=== PATIENT | female | born 1995 | race Caucasian/White ===

== ENCOUNTER 2023-07-29 15:20 | Emergency (ER) | payer OTHER ==
[2023-07-29 16:21] VITALS: RESP 16; TEMP 98.7
--- NOTE | 2023-07-29 16:27 | ED ---
Abdominal Pain HPI - General Source: patient, RN notes reviewed, old records reviewed Mode of arrival: ambulatory Limitations: no limitations <Lilly Kyle - Last Filed: 07/29/23 16:24> <Kurt Rose - Last Filed: 07/29/23 19:37> - General Chief Complaint: Abdominal Pain Stated Complaint: Abd Pain Time Seen by Provider: 07/29/23 16:24 - History of Present Illness Initial Comments: Patient is a 27-year-old female presented to the ER with chief complaint of right lower quadrant pain. 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 (Lilly Kyle) 27-year-old female presenting to the ED with a chief complaint of abdominal pain. Patient states 3 days ago started to feel pain in her right lower abdomen with some associated nausea and vomiting. Was seen at [facility] on 07/27/23 and was diagnosed with a urinary tract infection. Was given 1 g Rocephin at this time and discharged home with Keflex. Patient reports today, went back to [facility] continued symptoms. No worsening of this. Has been taking these antibiotics as prescribed. Stated that she would like to have another physician's opinion. Laboratory studies at this facility reviewed and labs including CBC and chemistry panel largely unremarkable. UA there did have 3+ blood, 10-20 red blood cells, 25-50 white blood cells, 3+ bacteria, and 3+ leukocyte Estrace. CT abdomen pelvis with contrast showed no acute process. Did show some mild splenomegaly at 13.9 cm. There were also some varices in the low pelvis which were also seen on transvaginal ultrasound as well. Patient was then transferred to this facility for surgical consultation. Patient reports that she has been taking her antibiotics as prescribed. (Kurt Rose) - Related Data Home Medications Medication Instructions Recorded Confirmed Omeprazole [PriLOSEC] 20 mg PO DAILY 12/03/15 12/03/15 Promethazine [Phenergan] 25 mg PO Q8HR PRN 12/03/15 12/03/15 Previous Rx's Medication Instructions Recorded Ciprofloxacin HCl [Cipro] 500 mg PO Q12HR #20 tablet 12/05/15 Allergies Allergy/AdvReac Type Severity Reaction Status Date / Time aripiprazole [From Abilify] AdvReac EYE ISSUES Verified 12/03/15 16:55 escitalopram oxalate AdvReac Nausea & Verified 12/03/15 16:55 [From Lexapro] Vomiting Review of Systems ROS Other: All systems not noted in ROS Statement are negative. <Lilly Kyle - Last Filed: 07/29/23 16:24> ROS Other: All systems not noted in ROS Statement are negative. <Kurt Rose - Last Filed: 07/29/23 19:37> ROS Statement: Those systems with pertinent positive or pertinent negative responses have been documented in the HPI. Past Medical History Past Medical History: No Reported History History of Any Multi-Drug Resistant Organisms: None Reported Past Surgical History: Orthopedic Surgery Additional Past Anesthesia/Blood Transfusion Reaction / Comment(s): no hx Past Psychological History: Anxiety, Bipolar, Depression Past Alcohol Use History: Rare Past Drug Use History: None Reported - Past Family History Mother Family Medical History: No Reported History Father Family Medical History: No Reported History <Lilly Kyle - Last Filed: 07/29/23 16:24> General Exam Limitations: no limitations <Lilly Kyle - Last Filed: 07/29/23 16:24> General appearance: alert, in no apparent distress Head exam: Present: atraumatic, normocephalic Neck exam: Present: normal inspection Respiratory exam: Present: normal lung sounds bilaterally Cardiovascular Exam: Present: regular rate, normal rhythm GI/Abdominal exam: Present: soft (Diffuse abdominal tenderness to palpation. No rebound guarding or rigidity. No significant CVA tenderness to percussion bilaterally.), normal bowel sounds Neurological exam: Present: alert, oriented X3 Skin exam: Present: warm, dry <Kurt Rose - Last Filed: 07/29/23 19:37> - General Exam Comments Initial Comments: Visual Physical Exam Vital signs reviewed General: Well-appearing, nontoxic, no acute distress. Head: Normocephalic, atraumatic Eyes: PERRLA, EOMI ENT: Airway patent Chest: Nonlabored breathing Skin: No visual rash, normal skin tone Neuro: Alert and oriented 3 Musculoskeletal: No gross abnormalities (Lilly Kyle) Course Vital Signs 07/29/23 15:46 Temperature 98.7 F Pulse Rate 79 Respiratory 16 Rate Blood Pressure 142/88 O2 Sat by Pulse 98 Oximetry Medical Decision Making <Lilly Kyle - Last Filed: 07/29/23 16:24> - Lab Data Result diagrams: 07/29/23 16:52 07/29/23 16:52 <Kurt Rose - Last Filed: 07/29/23 19:37> - Medical Decision Making I performed the quick note portion of this chart. Electronically signed by Lilly Kyle PA-C (Lilly Kyle) Was pt. sent in by a medical professional or institution ([facility], PIPE COVERER HELPER, urgent care, hospital, or [facility]...) When possible be specific @ -Patient transferred from [facility] Did you speak to anyone other than the patient for history (EMS, parent, family, police, friend...)? What history was obtained from this source @ -No Did you review nursing and triage notes (agree or disagree)? Why? @ -I reviewed and agree with nursing and triage notes Were old charts reviewed (outside hosp., previous admission, EMS record, old EKG, old radiological studies, urgent care reports/EKG's, [facility] records)? Report findings @ -Laboratory studies and imaging from [facility] reviewed. For further details please see HPI. Differential Diagnosis (chest pain, altered mental status, abdominal pain women, abdominal pain men, vaginal bleeding, weakness, fever, dyspnea, syncope, headache, dizziness, GI bleed, back pain, seizure, CVA, palpatations, mental health, musculoskeletal)? @ -Differential Abdominal Pain Women: Appendicitis, Cholecystitis, diverticulosis, ischemic bowel, pancreatitis, hepatitis, UTI, gastroenteritis, AAA, incarcerated hernia, bowel obstruction, constipation, inflammatory bowel, hepatitis, peptic ulcer disease, splenic infarction, perforated viscus, vulvitis, ovarian torsion, PID, kidney stone, placenta abruption, this is not meant to be an all-inclusive list EKG interpreted by me (3pts min.). @ -None X-rays interpreted by me (1pt min.). @ -None done CT interpreted by me (1pt min.). @ -None done U/S interpreted by me (1pt. min.). @ -None done What testing was considered but not performed or refused? (CT, X-rays, U/S, labs)? Why? @ -None What meds were considered but not given or refused? Why? @ -None Did you discuss the management of the patient with other professionals (professionals i.e. , PA, PIPE COVERER HELPER, lab, RT, psych nurse, web content & social media manager, bus transportation manager, teacher, unclaimed property officer, test case developer)? Give summary @ -Case discussed with Dr. Chavez of general surgery who advises patient at this time stable for discharge. Was smoking cessation discussed for >3mins.? @ -No Was critical care preformed (if so, how long)? @ -No Were there social determinants of health that impacted care today? How? (Homelessness, low income, unemployed, alcoholism, drug addiction, transportation, low edu. Level, literacy, decrease access to med. care, usp, rehab)? @ -No Was there de-escalation of care discussed even if they declined (Discuss DNR or withdrawal of care, Hospice)? DNR status @ -No What co-morbidities impacted this encounter? (DM, HTN, Smoking, COPD, CAD, Cancer, CVA, ARF, Chemo, Hep., AIDS, mental health diagnosis, sleep apnea, morbid obesity)? @ -None Was patient admitted / discharged? Hospital course, mention meds given and route, prescriptions, significant lab abnormalities, going to OR and other pert inent info. @ -Discharge 27-year-old female presenting to the ED as a transfer for [facility]. Patient initially seen there few days ago there and was diagnosed with a UTI. Was provided 1 g of ceftriaxone on 07/27/2023 and discharged with prescription for Keflex. Patient reports she has been taking this however admits to not taking it as frequently as prescribed. Labs and imaging studies from [facility] reviewed. Labs they are performed today did show evidence of a urinary tract infection. CT abdomen pelvis and transvaginal ultrasound that demonstrated bilateral lower abdominal varices. Discussed with Dr. Chavez of general surgery who advised patient stable for outpatient follow-up. At this time vital signs stable afebrile. Provided dose of ceftriaxone here. Patient was requesting prescription for Toradol and this was provided. Urine culture was obtained. Discussed return precautions with patient who verbalized agreement. Undiagnosed new problem with uncertain prognosis? @ -No Drug Therapy requiring intensive monitoring for toxicity (Heparin, Nitro, Insulin, Cardizem)? @ -No Were any procedures done? @ -No Diagnosis/symptom? @ -Urinary tract infection Acute, or Chronic, or Acute on Chronic? @ -Acute Uncomplicated (without systemic symptoms) or Complicated (systemic symptoms)? @ -Uncomplicated Side effects of treatment? @ -No Exacerbation, Progression, or Severe Exacerbation? @ -No Poses a threat to life or bodily function? How? (Chest pain, [place], CO, pneumonia, PE, COPD, DKA, ARF, appy, cholecystitis, CVA, Diverticulitis, Homicidal, Suicidal, threat to staff... and all critical care pts) @ -No (Kurt Rose) - Lab Data Lab Results 07/29/23 07/29/23 07/29/23 Range/Units 16:52 16:52 16:52 WBC 6.0 (3.8-10.6) k/uL RBC 4.98 (3.80-5.40) m/uL Hgb 13.3 (11.4-16.0) gm/dL Hct 40.0 (34.0-46.0) % MCV 80.3 (80.0-100.0) fL MCH 26.8 (25.0-35.0) pg MCHC 33.3 (31.0-37.0) g/dL RDW 15.0 (11.5-15.5) % Plt Count 211 (150-450) k/uL MPV 9.8 Neutrophils % 53 % Lymphocytes % 37 % Monocytes % 5 % Eosinophils % 2 % Basophils % 1 % Neutrophils # 3.2 (1.3-7.7) k/uL Lymphocytes # 2.2 (1.0-4.8) k/uL Monocytes # 0.3 (0-1.0) k/uL Eosinophils # 0.1 (0-0.7) k/uL Basophils # 0.0 (0-0.2) k/uL Sodium (137-145) mmol/L Potassium (3.5-5.1) mmol/L Chloride (98-107) mmol/L Carbon Dioxide (22-30) mmol/L Anion Gap mmol/L BUN (7-17) mg/dL Creatinine (0.52-1.04) mg/dL Est GFR (CKD-EPI)AfAm (>60 ml/min/1.73 sqM) Est GFR (CKD-EPI)NonAf (>60 ml/min/1.73 sqM) Glucose (74-99) mg/dL Calcium (8.4-10.2) mg/dL Total Bilirubin (0.2-1.3) mg/dL AST (14-36) U/L ALT (4-34) U/L Alkaline Phosphatase (38-126) U/L Total Protein (6.3-8.2) g/dL Albumin (3.5-5.0) g/dL Urine Color Colorless Urine Appearance Clear (Clear) Urine pH 7.5 (5.0-8.0) Ur Specific Whitmore >1.050 H (1.001-1.035) Urine Protein Trace H (Negative) Urine Glucose (UA) Negative (Negative) Urine Ketones Negative (Negative) Urine Blood Trace H (Negative) Urine Nitrite Negative (Negative) Urine Bilirubin Negative (Negative) Urine Urobilinogen <2.0 (<2.0) mg/dL Ur Leukocyte Esterase Large H (Negative) Urine RBC 5 (0-5) /hpf Urine WBC 11 H (0-5) /hpf Ur Squamous Epith Cells 9 H (0-4) /hpf Urine Bacteria Rare H (None) /hpf Urine HCG, Qual Not Detected (Not Detectd) 07/29/23 Range/Units 16:52 WBC (3.8-10.6) k/uL RBC (3.80-5.40) m/uL Hgb (11.4-16.0) gm/dL Hct (34.0-46.0) % MCV (80.0-100.0) fL MCH (25.0-35.0) pg MCHC (31.0-37.0) g/dL RDW (11.5-15.5) % Plt Count (150-450) k/uL MPV Neutrophils % % Lymphocytes % % Monocytes % % Eosinophils % % Basophils % % Neutrophils # (1.3-7.7) k/uL Lymphocytes # (1.0-4.8) k/uL Monocytes # (0-1.0) k/uL Eosinophils # (0-0.7) k/uL Basophils # (0-0.2) k/uL Sodium 141 (137-145) mmol/L Potassium 4.0 (3.5-5.1) mmol/L Chloride 110 H (98-107) mmol/L Carbon Dioxide 18 L (22-30) mmol/L Anion Gap 13 mmol/L BUN 10 (7-17) mg/dL Creatinine 0.55 (0.52-1.04) mg/dL Est GFR (CKD-EPI)AfAm >90 (>60 ml/min/1.73 sqM) Est GFR (CKD-EPI)NonAf >90 (>60 ml/min/1.73 sqM) Glucose 84 (74-99) mg/dL Calcium 9.3 (8.4-10.2) mg/dL Total Bilirubin 0.8 (0.2-1.3) mg/dL AST 33 (14-36) U/L ALT 25 (4-34) U/L Alkaline Phosphatase 74 (38-126) U/L Total Protein 7.9 (6.3-8.2) g/dL Albumin 4.6 (3.5-5.0) g/dL Urine Color Urine Appearance (Clear) Urine pH (5.0-8.0) Ur Specific Whitmore (1.001-1.035) Urine Protein (Negative) Urine Glucose (UA) (Negative) Urine Ketones (Negative) Urine Blood (Negative) Urine Nitrite (Negative) Urine Bilirubin (Negative) Urine Urobilinogen (<2.0) mg/dL Ur Leukocyte Esterase (Negative) Urine RBC (0-5) /hpf Urine WBC (0-5) /hpf Ur Squamous Epith Cells (0-4) /hpf Urine Bacteria (None) /hpf Urine HCG, Qual (Not Detectd) Disposition <Lilly Kyle - Last Filed: 07/29/23 16:24> Is patient prescribed a controlled substance at d/c from ED?: No Time of Disposition: 19:37 <Kurt Rose - Last Filed: 07/29/23 19:37> Clinical Impression: Abdominal pain, Urinary tract infection Disposition: HOME SELF-CARE Condition: Good Instructions (If sedation given, give patient instructions): Abdominal Pain (ED), Urinary Tract Infection in Women (ED) Additional Instructions: Please return to the Emergency Department if symptoms worsen or any other concerns. Please follow-up with your primary care provider. Referrals: Prashant Sharp MD [Primary Care Provider] - 1-2 days
[2023-07-29 17:11] LABS: Appearance,Urine Clear (Clear); Bacteria,Urine Rare /hpf; Bilirubin,Urine Negative (Negative); Blood,Urine Trace (Negative); Color,Urine Colorless; Glucose,Urine (UA) Negative (Negative); Ketones,Urine Negative (Negative); Leukocyte Esterase,Urine Large (Negative); Nitrite,Urine Negative (Negative); PH, Urine 7.5 (5.0-8.0); Protein,Urine Trace (Negative); RBC,Urine 5 /hpf (0-5); Squamous Epithelial Cell,Urine 9 /hpf (0-4); Urobilinogen,Urine <2.0 mg/dL (<2.0); WBC,Urine 11 /hpf (0-5)
[2023-07-29 17:22] LABS: Specific Gravity,Urine >1.050 (1.001-1.035)
[2023-07-29 18:12] LABS: Basophils % (A) 1 %; Eosinophils # (A) 0.1 k/uL (0-0.7); Eosinophils % (A) 2 %; HGB 13.3 gm/dL (11.4-16.0); Lymphocytes # (A) 2.2 k/uL (1.0-4.8); Lymphocytes % (A) 37 %; MCH 26.8 pg (25.0-35.0); MCHC 33.3 g/dL (31.0-37.0); MCV 80.3 fL (80.0-100.0); Mean Platelet Volume 9.8; Monocytes # (A) 0.3 k/uL (0-1.0); Monocytes % (A) 5 %; Neutrophils # (A) 3.2 k/uL (1.3-7.7); Neutrophils % (A) 53 %; Platelet Count 211 k/uL (150-450); RBC 4.98 m/uL (3.80-5.40)
[2023-07-29 18:14] LABS: ALT 25 U/L (4-34); AST 33 U/L (14-36); African American GFR (CKD) >90 (>60 ml/min/1.73 sqM); Albumin 4.6 g/dL (3.5-5.0); Alkaline Phosphatase 74 U/L (38-126); Anion Gap 13 mmol/L; Blood Urea Nitrogen 10 mg/dL (7-17); Calcium 9.3 mg/dL (8.4-10.2); Carbon Dioxide 18 mmol/L (22-30); Chloride 110 mmol/L (98-107); Glucose 84 mg/dL (74-99); Non-African American GFR(CKD) >90 (>60 ml/min/1.73 sqM); Sodium 141 mmol/L (137-145); Total Bilirubin 0.8 mg/dL (0.2-1.3); Total Protein 7.9 g/dL (6.3-8.2)
[2023-07-29] MEDS: cefTRIAXone IN SWFI 1,000 MG/10 ML SYRINGE IVP STA (19:49)
[2023-07-29] MEDS: ACETAMINOPHEN TAB 500 MG TAB PO STA (19:49)
[2023-07-29 20:28] VITALS: BP 133/86; PULSE 102
== END 2023-07-29 20:00 | disposition home or self-care (01) ==
LOC: EC 15:20
DX: N39.0 Urinary tract infection, site not specified (principal); Z88.8 Allergy status to other drugs, medicaments and biological substances; Z86.59 Personal history of other mental and behavioral disorders
CPT/HCPCS: 36415; 80053; 85025; 81001; 81025; 87086; 99284; 96374; J0696